=== PATIENT | female | born 1995 | race Caucasian/White ===

== ENCOUNTER 2024-02-10 18:38 | Emergency (ER) | payer OTHER, SELFPAY ==
--- NOTE | ~2024-02-10 | XR_ITS ---
XR chest 2V Ordering provider: Abimael Claire APRN History: 28 years Female with . cough, sob, fever . Comparison: None. FINDINGS: MEDIASTINUM: The cardiac silhouette is not enlarged. LUNGS: No effusions or pneumothorax. Opacification the left perihilar area and left lower lobe area s uggestive of pneumonia. OTHER: No free air under the diaphragm. IMPRESSION: Pneumonia in the left perihilar and left lower lobe area. Reviewed, dictated and finalized at location [facility]. [facility]
--- NOTE | 2024-02-10 18:41 | ED_ITS ---
HPI - URI/Sore Throat General Chief Complaint: Upper Respiratory Infection Stated Complaint: Fever/Cough Time Seen by Provider: 02/10/24 18:41 Source: patient Mode of arrival: ambulatory Limitations: no limitations History of Present Illness HPI Narrative: Raul is a 28-year-old female patient presenting to the clinic today with complaints of fever, shortness breath, and productive cough with dark brown phlegm x4 days. She reports fevers high as 102? F. Spoke to a tele doc today and they recommend she come in for x-rays to rule out walking pneumonia. MD elicited complaint: sore throat and nasal congestion Review of Systems Review of Systems: Pertinent positives per HPI. Patient denies any rash, headache, visual changes, dizziness, shortness of breath, chest pain, palpitations, nausea, vomiting, diarrhea, constipation, abdominal pain, or any urinary issues. PMFSH Comments At the time of my signature, I reviewed and agree with the nursing past medical, surgical, social, and family history. There is no relevant family history pertinent to the patient complaint. Exam Narrative: General: Well-developed, well nourished, in no apparent distress Head: Normocephalic, atraumatic Eyes: Pupils equally round and reactive to light bilaterally, EOM intact, sclera and conjunctive clear, no discharge, lids normal Ears: TMs intact and clear, ear canals clear, no drainage, grossly hearing normal. Nose: Nares patent, no discharge, no inflammation, no sinus tenderness. Mouth: Oral pharynx without lesions or masses, good dentition, MMM. Neck: Supple, trachea midline, no enlargement of anterior or posterior cervical nodes, no thyroid masses or goiter palpable. Cardio: Regular rate and rhythm, s1 and s2 normal, no murmur appreciated. Resp: Clear to auscultation bilaterally, no rhonchi, rales, wheezing or rubs Course Course Emergency Course: Portions of this record may have been created with voice recognition software. Level of Care: Express Care Visit Vital Signs Vital signs: Vital Signs Temperature 37.8 C H 02/10/24 18:48 Pulse Rate 114 H 02/10/24 18:48 Respiratory Rate 16 02/10/24 18:48 Blood Pressure 127/92 H 02/10/24 18:48 Pulse Oximetry 99 02/10/24 18:48 Temperature 37.8 C H 02/10/24 18:48 Pulse Rate 114 H 02/10/24 18:48 Respiratory Rate 16 02/10/24 18:48 Blood Pressure 127/92 H 02/10/24 18:48 Pulse Oximetry 99 02/10/24 18:48 Vital signs reviewed MDM - URI/Sore Throat MDM Narrative Medical decision making narrative: At the time of visit patient is resting comfortably on the exam table. Patient appears to be nontoxic. Labs: COVID and influenza testing was negative in the clinic today. Diagnostics: Chest x-ray shows left perihilar and left lower lobe pneumonia. Plan: I suspect patient has left perihilar left lower lobe pneumonia. Prescription for albuterol inhaler, Augmentin, and azithromycin was sent to the pharmacy. Work note was given. Supportive measures were discussed with the patient and they voiced understanding discharge instructions and agrees to treatment plan. Return precautions reviewed Differential Diagnosis Differential diagnosis: Likely upper respiratory infection, otitis media, sinusitis, viral infection, bronchitis, influenza, pharyngitis and other (COVID) Lab Data Labs: Lab Results 02/10/24 Range/Units 19:17 POC Influenza A Ag Negative (Negative) POC Influenza B Ag Negative (Negative) POC SARS CoV-2 Ag Negative (Negative) Imaging Data Radiologist's impression: ITS Impressions Chest X-Ray 02/10/24 19:11 IMPRESSION: Pneumonia in the left perihilar and left lower lobe area. Discharge Plan Discharge Clinical Impression: Pneumonia Qualifiers: Pneumonia type: due to unspecified organism Laterality: left Lung location: unspecified part of lung Qualified Code(s): J18.9 - Pneumonia, unspecified organism Patient Disposition: Home, Self-Care Condition: Stable Instructions: Antibiotic Form, Pneumonia (ED) Additional Instructions: COVID and influenza testing was negative in the clinic today. X-ray is positive for left perihilar and left lower lobe pneumonia. Take prescription medications only as prescribed-albuterol inhaler, Augmentin, and azithromycin Increase fluids and stay well hydrated Tylenol/motrin for pain/fever Flonase and OTC antihistamines as directed Vicks vapor rub to open sinuses Sinus rinses for congestion Cepacol spray, cough drops, throat lozenges, warm tea with honey/lemon, gargle salt water to soothe throat BRAT diet for diarrhea Clear liquids x 24 hours then advance as tolerated for nausea/vomiting Go to the ED if you develop a worsening in your condition- high fever not c ontrolled by Tylenol or Motrin, dehydration, weakness, lethargy, shortness of breath, or chest pain. Follow up with your PCP in 3-5 days if symptoms persist. Prescriptions: New azithromycin 250 mg tablet See Rx Instructions .ROUTE .COMPLEX Qty: 6 0RF Rx Instructions: For 250 mg dose pack: take 500 mg today (day 1), then 250 mg for 4 days (days 2-5) amoxicillin-pot clavulanate 875-125 mg tablet 1 tablet PO Q12H 7 Days Qty: 14 0RF albuterol sulfate 90 mcg/actuation HFA aerosol inhaler 2 puff inhalation Q4-6H PRN (Reason: shortness of breath or wheezing) 30 Days Qty: 8.5 0RF Follow-up/Referrals: UNKNOWN,DOCTOR [Non-Staff] - Stand Alone Forms: Work/School Release IP Time of Disposition: 19:17 Quality NIHSS Nursing Documentation ED NIHSS nursing documentation: reviewed/agree
[2024-02-10 18:48] VITALS: BP 127/92; PULSE 114; RESP 16; TEMP 37.8; O2SAT 99
[2024-02-10 19:19] LABS: EDCOVIDSCREEN Negative (Negative); EDINFLUASCREEN Negative (Negative); EDINFLUBSCREEN Negative (Negative)
== END 2024-02-10 19:20 | disposition home or self-care (01) ==
PROVIDERS: Emergency Provider Nurse Practitioner Family
DX: J18.9 Pneumonia, unspecified organism (principal); Z20.822 Contact with and (suspected) exposure to COVID-19
CPT/HCPCS: 71046; 87426; 87804; 99203; G0463